=== PATIENT | male | born 1960 | race Caucasian/White ===

== ENCOUNTER 2023-01-12 14:13 | Emergency (ER) | payer BC, OTHER ==
[~2023-01-12] VITALS: Ht 190.5 cm; Wt 86.2 kg
[2023-01-12 14:24] VITALS: BP 155/85; PULSE 63; RESP 16; O2SAT 97
[2023-01-12] MEDS ORDERED: GLUCAGON 1MG KIT 1 MG ML IM SCH (15:30)
[2023-01-12] MEDS ORDERED: 0.9% NACL 500ML IV.SOLN 500 ML IV SCH (15:30)
== END 2023-01-12 16:59 | disposition home or self-care (01) ==
LOC: EDH 14:13
DX: T18.128A Food in esophagus causing other injury, initial encounter (principal); K21.9 Gastro-esophageal reflux disease without esophagitis
CPT/HCPCS: 99281; J1610